=== PATIENT | male | born 1970 | race Hispanic/Latino ===

== ENCOUNTER 2020-05-30 15:22 | Emergency (ER) | payer SELFPAY ==
[~2020-05-30 15:22] MED LIST: Iopamidol 370 76% 100 ML VIAL ONE
[2020-05-30 16:03] LABS: #Basophils 0.1 thou/uL (0.0-0.2); #Eosinphils 0.1 thou/uL (0.0-0.7); #Lymphocytes 2.2 thou/uL (1.20-3.40); #Monocytes 1.2 thou/uL (0.11-0.59); #Neutrophils 11.7 thou/uL (1.40-6.50); %Basophils 0.9 % (0.0-1.0); %Eosinophils 0.3 % (0.0-10.0); %Lymphocytes 14.5 % (21.0-51.0); %Monocytes 7.8 % (0.0-10.0); %Neutrophils 76.4 % (42.0-75.0); Hemoglobin 14.6 g/dL (14.0-18.0); Mean Corpuscular HGB CONC 31.4 g/dL (32.0-36.0); Mean Corpuscular Hemoglobin 28.7 pg (27.0-31.0); Mean Corpuscular Volume 91.2 fL (78.0-98.0); Mean Platelet Volume 8.3 fL (7.4-10.4); Platelet Count 281 thou/uL (130-400); RBC Distribution Width 12.1 % (11.5-14.5); Red Blood Cell (RBC) Count 5.09 mill/uL (4.70-6.10); White Blood Cell (WBC) Count 15.4 thou/uL (4.8-10.8)
[2020-05-30 16:08] LABS: Anion Gap 15 mmol/L (10-20); BUN (Urea Nitrogen) 12 mg/dL (8.4-25.7); Calc. Creatinine Clearance 0 mL/min (70-130); Calcium 9.2 mg/dL (7.8-10.44); Carbon Dioxide 22 mmol/L (22-29); Chloride 103 mmol/L (98-107); Estimated GFR-MDRD Greater than 90; Glucose 106 mg/dL (70-105); Sodium 136 mmol/L (136-145)
[2020-05-30] MEDS ORDERED: Lidocaine 1% (PF) 30 ML VIAL ONE (17:20)
--- NOTE | 2020-05-30 17:26 | CT ---
CT OF PELVIS PERFORMED WITH CONTRAST ENHANCEMENT: History: Rectal pain x 8 days FINDINGS: There is a perirectal abscess slightly to the left of midline, posterior to the rectum. This measures approximately 2.8 cm in diameter and 4.4 cm in length. No intrapelvic extension although there is so me minimal presacral fat stranding. No diverticular changes. Visualized osseous structures appear unremarkable. IMPRESSION: Findings compatible with a perianal abscess. POS: OFF
[2020-05-30] MEDS ORDERED: Boostrix 0.5 ML VIAL ONE (17:56)
== END 2020-05-30 18:32 | disposition home or self-care (01) ==
LOC: NAV ERS 15:22
DX: K61.1 Rectal abscess (principal); Z23 Encounter for immunization
CPT/HCPCS: 46040; 72193; 80048; 85025; 87070; 87077; 87186; 87205; 90471; 90715; J2001; Q9967

== ENCOUNTER 2020-06-02 09:20 | Emergency (ER) | payer SELFPAY | END 2020-06-02 09:55 | disposition home or self-care (01) | LOC: NAV ERS 09:20 | DX: Z48.817 Encounter for surgical aftercare following surgery on the skin and subcutaneous tissue (principal) | CPT/HCPCS: 99282 ==